=== PATIENT | female | born 1975 | race Caucasian/White ===

== ENCOUNTER 2022-04-28 19:16 | Inpatient (IN) | payer MEDICAID ==
[~2022-04-28] VITALS: Ht 157.5 cm; Wt 70.3 kg
[2022-04-28 19:27] VITALS: BP 135/75
--- NOTE | 2022-04-28 20:12 | NUR ---
Dr. Kaur examining patient.
[2022-04-28 20:59] LABS: BILIRUBIN,URINE 1+ (NEGATIVE); BLOOD, URINE NEGATIVE (NEGATIVE); LEUKOCYTE ESTERASE ,URINE TRACE (NEGATIVE); NITRITE, URINE NEGATIVE (NEGATIVE); UGLUCOSE NEGATIVE (NEGATIVE)
[2022-04-28 21:00] LABS: APPEARANCE,URINE CLOUDY (CLEAR); COLOR,URINE ORANGE (YELLOW)
[2022-04-28 21:18] LABS: RBC,URINE 0-5 /HPF (0-5)
--- NOTE | 2022-04-28 21:26 | NUR ---
TO BED 8 FROM
--- NOTE | 2022-04-28 21:37 | NUR ---
RECEIVED PT IN BED 8 WITH C/O ABDOMINAL PAIN X 3 YEARS. LAB IS AT BEDSIDE
[2022-04-28 21:47] LABS: BASOPHILS % (AUTO) 0.3 % (0.0-2.0); EOSINOPHILS # (AUTO) 0.1 K/uL (0-0.4); EOSINOPHILS % (AUTO) 0.7 % (0.0-4.0); HEMOGLOBIN 10.8 g/dL (12.0-16.0); LYMPHOCYTES # (AUTO) 0.8 K/uL (2.5-16.5); LYMPHOCYTES % (AUTO) 9.5 % (20.5-51.1); MEAN CORPUSCULAR HEMOGLOBIN 25 pg (27-31); MEAN CORPUSCULAR HGB CONC 32 g/dL (33-37); MEAN CORPUSCULAR VOLUME 79.6 fL (80-94); MONOCYTES # (AUTO) 0.6 K/uL (0.8-1.0); MONOCYTES % (AUTO) 7.8 % (1.7-9.3); NEUTROPHILS # (AUTO) 6.7 K/uL (1.8-7.7); NEUTROPHILS % (AUTO) 81.7 % (42.2-75.2); PLATELET COUNT (AUTO) 312 K/uL (140-450); RED BLOOD CELL COUNT(AUTO) 4.27 MIL/uL (4.20-5.40); RED CELL DISTRIBUTION WIDTH 15.7 % (11.6-13.7); WHITE BLOOD COUNT (AUTO) 8.2 K/uL (4.8-10.8)
[2022-04-28 22:03] LABS: ALBUMIN 4.1 g/dL (3.4-5.0); ANION GAP 11.3 (8-16); CARBON DIOXIDE 26.4 mmol/L (21-32); CREATININE 0.6 mg/dL (0.6-1.3); POTASSIUM 3.7 mmol/L (3.5-5.1); TOTAL BILIRUBIN 1.1 mg/dL (0.0-1.0)
[2022-04-28] MEDS ORDERED: KETOROLAC 15 MG/ML VIAL IVP ONE (22:10)
--- NOTE | 2022-04-28 22:10 | NUR ---
FERNY SWAB OBTAINED AND SENT TO LAB
--- NOTE | 2022-04-28 22:41 | NUR ---
BELONGINGS LIST DONE.
[2022-04-28] MEDS ORDERED: HYDROmorphone 1 MG/ML AMP IVP PRN (23:45)
[2022-04-28] MEDS ORDERED: DOCUSATE SODIUM 100 MG GELCAP PO PRN (23:45)
[2022-04-28] MEDS ORDERED: ONDANSETRON 4 MG/2 ML VIAL IM/IVP PRN (23:45)
[2022-04-28] MEDS ORDERED: ACETAMINOPHEN 325 MG TAB PO PRN (23:45)
[2022-04-28] MEDS ORDERED: guaiFENesin DM 200/20 MG-10 ML 10 ML UDC PO PRN (23:45)
[2022-04-28] MEDS ORDERED: HYDROcodone/APAP 7.5/325 MG 1 TAB PO PRN (23:45)
[2022-04-28] MEDS ORDERED: ZOLPIDEM 5 MG TAB PO PRN (23:45)
[2022-04-29 00:07] LABS: PROTHROMBIN TIME 10.1 secs (10.8-13.4)
[2022-04-29] MEDS ORDERED: cefTRIAXone 1,000 MG VIAL ONE (00:22)
[2022-04-29 00:23] LABS: CHOL/HDL RATIO 2.3 (1-4.5); FREE T4 (FREE THYROXINE) 1.21 ng/dL (0.76-1.46); MAGNESIUM 1.7 mg/dL (1.8-2.4); PHOSPHORUS 2.3 mg/dL (2.5-4.9); THYROID STIMULATING HORMONE 1.15 uIU/mL (0.34-3.74)
[2022-04-29] MEDS: DEXT 5% /NACL 0.9% 1,000 ML IV SCH ×4 (00:33→19:50)
--- NOTE | 2022-04-29 01:05 | NUR ---
REPORT TO NABILA PEREZ
--- NOTE | 2022-04-29 01:25 | NUR ---
TO 105A VIA W/C
[2022-04-29 01:53] VITALS: BP 132/72
[2022-04-29 02:26] VITALS: BP 132/72
--- NOTE | 2022-04-29 04:32 | NUR ---
PATIENT STABLE VITALS SIGNS IN NORMAL LIMITS NOT COMPLAINING OF PAIN AT THIS TIME
[2022-04-29 05:13] VITALS: BP 126/71
--- NOTE | 2022-04-29 07:15 | NUR ---
ASSUMED CONTINUITY OF CARE. INITIAL ASSESSMENT DONE. NO C/O ABD PAIN. EXPLAINED DIAGNOSIS, PLAN OF CARE, NPO EXCEPT MEDS, PAIN MANAGEMENT TEACHING, USE OF CALL LIGHT/BED/TV/BATHROOM. VERBALIZED UNDERSTANDING. CALL LIGHT WITHIN REACH.
--- NOTE | 2022-04-29 07:16 | NUR ---
I PAGE DOCTOR MANUEL FOR MAG LEVEL 1.7
[2022-04-29 07:18] LABS: BASOPHILS % (AUTO) 0.5 % (0.0-2.0); EOSINOPHILS # (AUTO) 0.2 K/uL (0-0.4); EOSINOPHILS % (AUTO) 4.2 % (0.0-4.0); HEMATOCRIT 29.5 % (36-48); HEMOGLOBIN 9.6 g/dL (12.0-16.0); LYMPHOCYTES # (AUTO) 0.9 K/uL (2.5-16.5); MEAN CORPUSCULAR HEMOGLOBIN 26 pg (27-31); MEAN CORPUSCULAR HGB CONC 33 g/dL (33-37); MEAN CORPUSCULAR VOLUME 79.2 fL (80-94); MONOCYTES # (AUTO) 0.5 K/uL (0.8-1.0); MONOCYTES % (AUTO) 10.9 % (1.7-9.3); NEUTROPHILS % (AUTO) 64.4 % (42.2-75.2); PLATELET COUNT (AUTO) 269 K/uL (140-450); RED BLOOD CELL COUNT(AUTO) 3.72 MIL/uL (4.20-5.40); RED CELL DISTRIBUTION WIDTH 15.9 % (11.6-13.7); WHITE BLOOD COUNT (AUTO) 4.7 K/uL (4.8-10.8)
--- NOTE | 2022-04-29 07:20 | NUR ---
I PAGE DOCTOR LAURA ABOUT MAG 1.7 WAITING FOR ORDER
--- NOTE | 2022-04-29 07:20 | NUR ---
WAITING FOR ORDER
--- NOTE | 2022-04-29 07:37 | NUR ---
ORDER FOR MAGNESIUM REPLACE WAS GIVE MAGOX 400 DAILY PO
[2022-04-29 07:51] LABS: ALBUMIN 3.4 g/dL (3.4-5.0); ANION GAP 13.7 (8-16); CARBON DIOXIDE 23.4 mmol/L (21-32); CREATININE 0.7 mg/dL (0.6-1.3); POTASSIUM 3.1 mmol/L (3.5-5.1); TOTAL BILIRUBIN 1.1 mg/dL (0.0-1.0)
[2022-04-29 08:00] VITALS: BP 108/58
[2022-04-29] MEDS: PANTOPRAZOLE 40 MG TABEC PO SCH (08:23)
[2022-04-29] MEDS: MAGNESIUM OXIDE 400 MG TAB PO SCH (08:24)
[2022-04-29] MEDS: POTASSIUM CHLORIDE 10 MEQ TABER PO PRN (08:32)
--- NOTE | 2022-04-29 09:45 | NUR ---
PATIENT HAS BEEN SCREENED AND CATEGORIZED MODERATE NUTRITION RISK. PATIENT WILL BE SEEN WITHIN 3-5 DAYS OF ADMISSION. REVIEWED BY MANGO BURTON RD
--- NOTE | 2022-04-29 10:20 | NUR ---
WENT TO BATHROOM WITHOUT ASSISTANCE. TOLERATED WELL. NO C/O PAIN.
--- NOTE | 2022-04-29 14:28 | NUR ---
GRACE TO NM VIA WHEELCHAIR. IN STABLE CONDITION.
--- NOTE | 2022-04-29 15:31 | NUR ---
PAGED DR. JACKSON AND ASKED FOR MORPHINE 2 MG IVP X1 DOSE ORDER FOR PT. HIDA SCAN. DR. JACKSON PAGED BACK AND SAID THAT PRN MORPHINE 3 MG IVP TO USE INSTEAD. CALL ALTON FROM PHARMACY AND INFORMED THAT MORPHINE 2 MG IVP WILL BE ONLY USE FOR PT. HIDA SCAN. AND PER ALTON, JUST WASTE REMAINING MORPHINE 2 MG. INFORMED CHARGE NURSE CORIN SHANNON.
--- NOTE | 2022-04-29 15:51 | NUR ---
MORPHINE 2 MG IVP GIVEN BY KASSIDY SHANNON FOR PT. HIDA SCAN PROTOCOL INSIDE NM DEPARTMENT.
[2022-04-29] MEDS: MORPHINE SULFATE 2 MG/ML SYR IVP PRN (16:04)
--- NOTE | 2022-04-29 16:27 | NUR ---
CAME BACK FROM [place] VIA WHEELCHAIR. NO C/O PAIN. NO C/O N/V.
--- NOTE | 2022-04-29 16:30 | NUR ---
MORPHINE 2 MG IV THAT WAS LEFT OVER FROM MORHINE 3 MG IVP Q4 PRN DOSE USED FOR PT. HIDA SCAN WASTED AND WITNESSED BY CHARGE NURSE CORIN SHANNON.
--- NOTE | 2022-04-29 16:40 | NUR ---
DEISY CALERO SPOKE TO PT. REGARDING NM AFTER PROCEDURE PRECAUTION.
[2022-04-29 16:45] VITALS: BP 136/67
--- NOTE | 2022-04-29 19:10 | NUR ---
BEDSIDE REPORT GIVEN TO FATIMAH YOUNG. IVF INFUSING WELL. IN STABLE CONDITION.
--- NOTE | 2022-04-29 19:30 | NUR ---
RECEIVED REPORT FROM DAY SHIFT NURSE FOR CONTINUITY OF CARE. PT IS AWAKE IN BED, A&OX4. CURRENTLY ON ROOM AIR WITH NO APPARENT SIGNS OF DISTRESS NOTED. IV SITE LOCATED AT LEFT AC 18 GAUGE, RUNNING D5NS AT 150ML/HR. IVF FLUID RUNNING WELL, NO INFILTRATION NOTED. PT CURRENTLY NPO, WILL CONTINUE TO MONITOR.
[2022-04-29 20:00] VITALS: BP 132/71
--- NOTE | 2022-04-29 22:00 | NUR ---
Patient's Plan of Care was discussed and reviewed with SARAH HOOVER
[2022-04-29 23:48] LABS: BARBITURATE, URINE NEGATIVE ng/ml (NEG <=200); BENZODIAZEPINE, URINE NEGATIVE ng/mL (NEG <=200); CANNABINOID, URINE NEGATIVE ng/mL (NEG <=50); COCAINE, URINE NEGATIVE ng/mL (NEG <=300); OPIATE, URINE POSITIVE ng/mL (NEG <=2000); PHENCYCLIDINE SCREEN,URINE NEGATIVE ng/mL (NEG <=25)
[2022-04-30] MEDS: DEXT 5% /NACL 0.9% 1,000 ML IV SCH ×4 (02:30→22:30)
[2022-04-30 04:00] VITALS: BP 101/47
--- NOTE | 2022-04-30 05:45 | NUR ---
PT SLEPT THROUGHOUT THE NIGHT WITH NO COMPLAINTS OF PAIN OR SIGNS OF DISTRESS. WILL ENDORSE TO DAY SHIFT NURSE FOR CONTINUITY OF CARE.
[2022-04-30 06:21] LABS: BASOPHILS % (AUTO) 0.5 % (0.0-2.0); EOSINOPHILS # (AUTO) 0.3 K/uL (0-0.4); EOSINOPHILS % (AUTO) 8.4 % (0.0-4.0); HEMATOCRIT 29.1 % (36-48); HEMOGLOBIN 9.4 g/dL (12.0-16.0); LYMPHOCYTES # (AUTO) 1.1 K/uL (2.5-16.5); LYMPHOCYTES % (AUTO) 35.8 % (20.5-51.1); MEAN CORPUSCULAR HEMOGLOBIN 26 pg (27-31); MEAN CORPUSCULAR HGB CONC 32 g/dL (33-37); MEAN CORPUSCULAR VOLUME 79.9 fL (80-94); MONOCYTES # (AUTO) 0.3 K/uL (0.8-1.0); MONOCYTES % (AUTO) 9.3 % (1.7-9.3); NEUTROPHILS # (AUTO) 1.5 K/uL (1.8-7.7); PLATELET COUNT (AUTO) 254 K/uL (140-450); RED BLOOD CELL COUNT(AUTO) 3.64 MIL/uL (4.20-5.40); RED CELL DISTRIBUTION WIDTH 15.4 % (11.6-13.7); WHITE BLOOD COUNT (AUTO) 3.2 K/uL (4.8-10.8)
[2022-04-30 07:03] LABS: ALBUMIN 3.1 g/dL (3.4-5.0); ANION GAP 9.3 (8-16); CREATININE 0.6 mg/dL (0.6-1.3); POTASSIUM 3.3 mmol/L (3.5-5.1); TOTAL BILIRUBIN 0.7 mg/dL (0.0-1.0)
[2022-04-30 08:00] VITALS: BP 113/61
[2022-04-30] MEDS: POTASSIUM CHLORIDE 10 MEQ TABER PO PRN (09:22)
[2022-04-30] MEDS: PANTOPRAZOLE 40 MG TABEC PO SCH (09:23)
[2022-04-30] MEDS: MAGNESIUM OXIDE 400 MG TAB PO SCH (09:24)
--- NOTE | 2022-04-30 10:25 | NUR ---
BACK FROM ICU. REPORT RECEIVED FROM [facility]. PT A/O X4. MS. RA. IN NO ACUTE DISTRESS. NPO AFTER MIDNIGHT. NEEDS ALL MET AT THIS TIME. ALL SAFETY MEASURES IN PLACE.
--- NOTE | 2022-04-30 12:30 | NUR ---
PT IN NO ACUTE DISTRESS. RESTING COMFORTABLY. ALL NEEDS MET AT THIS TIME. ALL SAFETY MEASURES IN PLACE.
--- NOTE | 2022-04-30 15:20 | NUR ---
REPORT GIVEN TO [facility] FOR CONTINUITY OF CARE.
--- NOTE | 2022-04-30 15:25 | NUR ---
RECEIVED REPORT FROM DAYSHIFT NURSE. PATIENT IS RESTING COMFORTABLY IN BED WITH NO SIGNS OF DISTRESS. WAITING TO BE SEEN BY ALL NEEDS ARE MET AT THIS TIME. BED IS PLACED IN LOWEST POSITION, CALL LIGHT IS WITHIN REACH.
[2022-04-30 16:00] VITALS: BP 128/78
--- NOTE | 2022-04-30 16:10 | NUR ---
AT BEDSIDE. PT WAS SEEN BY DR DOOLEY. MACKENZIE ([facility], ID#[id number]) WAS USED TO TRANSLATE TO PATIENT.
[2022-04-30] MEDS: MORPHINE SULFATE 2 MG/ML SYR IVP PRN (18:29)
--- NOTE | 2022-04-30 19:15 | NUR ---
RECEIVED REPORT FROM DAY SHIFT NURSE FOR CONTINUITY OF CARE. PT IS STABLE AT THIS TIME. D5NS RUNNING WITH NO ISSUES. LAC 18 GAUGE IV SITE INTACT AND PATENT. PT STILL NPO EXCEPT MEDS AT THIS TIME. CALL LIGHT WITHIN REACH, SAFETY PRECAUTIONS IN PLACE, WILL MAKE FREQUENT ROUNDS THROUGHOUT SHIFT.
[2022-05-01] VITALS: BP 126/75
[2022-05-01] MEDS: DEXT 5% /NACL 0.9% 1,000 ML IV SCH ×2 (05:10→11:50)
[2022-05-01 06:48] LABS: BASOPHILS % (AUTO) 0.6 % (0.0-2.0); EOSINOPHILS # (AUTO) 0.3 K/uL (0-0.4); EOSINOPHILS % (AUTO) 7.5 % (0.0-4.0); HEMATOCRIT 30.5 % (36-48); HEMOGLOBIN 9.7 g/dL (12.0-16.0); LYMPHOCYTES # (AUTO) 1.4 K/uL (2.5-16.5); LYMPHOCYTES % (AUTO) 38.5 % (20.5-51.1); MEAN CORPUSCULAR HEMOGLOBIN 26 pg (27-31); MEAN CORPUSCULAR HGB CONC 32 g/dL (33-37); MEAN CORPUSCULAR VOLUME 79.9 fL (80-94); MONOCYTES # (AUTO) 0.3 K/uL (0.8-1.0); MONOCYTES % (AUTO) 9.2 % (1.7-9.3); NEUTROPHILS # (AUTO) 1.6 K/uL (1.8-7.7); NEUTROPHILS % (AUTO) 44.2 % (42.2-75.2); PLATELET COUNT (AUTO) 264 K/uL (140-450); RED BLOOD CELL COUNT(AUTO) 3.82 MIL/uL (4.20-5.40); RED CELL DISTRIBUTION WIDTH 15.9 % (11.6-13.7); WHITE BLOOD COUNT (AUTO) 3.6 K/uL (4.8-10.8)
[2022-05-01 06:50] LABS: ALBUMIN 3.2 g/dL (3.4-5.0); CARBON DIOXIDE 24.2 mmol/L (21-32); CREATININE 0.6 mg/dL (0.6-1.3); POTASSIUM 3.2 mmol/L (3.5-5.1); TOTAL BILIRUBIN 0.4 mg/dL (0.0-1.0)
--- NOTE | 2022-05-01 07:20 | NUR ---
RECEIVED REPORT FROM NIGHT NURSE FATIMAH FOR CONTINUITY OF CARE. INITIAL ASSESSMENT DONE. IVF INFUSING WELL. PT ON NPO EXCEPT MEDS. NO C/O PAIN OR DISCOMFORT. CALL LIGHT KEPT WITHIN REACH. WILL CONTINUE TO MONITOR.
--- NOTE | 2022-05-01 07:45 | NUR ---
PT SLEPT THROUGHOUT THE NIGHT WITH NO SIGNS OF DISTRESS NOTED. ENDORSED TO DAY SHIFT NURSE IN STABLE CONDITION.
[2022-05-01 08:00] VITALS: BP 131/77
[2022-05-01] MEDS: PANTOPRAZOLE 40 MG TABEC PO SCH (08:29)
[2022-05-01] MEDS: MAGNESIUM OXIDE 400 MG TAB PO SCH (08:29)
--- NOTE | 2022-05-01 08:29 | NUR ---
SCHEDULED MEDICATIONS AND PRN K-DUR WAS GIVEN FOR POTASSIUM 3.2 TOLERATING WELL.
[2022-05-01] MEDS: POTASSIUM CHLORIDE 10 MEQ TABER PO PRN (08:30)
--- NOTE | 2022-05-01 10:52 | NUR ---
NOTIFIED BY PROGRAM/MUSIC DIRECTOR ELISHA, PER DR. CASIANO PT DOESN'T NEED FOR ERCP. DR. LACKEY NOTIFIED IF PT NEED FOR LAP NENO. AWAITING FOR RESPONSE.
--- NOTE | 2022-05-01 11:12 | NUR ---
RECEIVED CALLED FROM DR. LACKEY STATED PT WILL FOLLOW ON HIS CLINIC. PT MADE AWARE. Addendum: 05/01/22 at 1229 by TEJ ZHOU LVN ADDENDUM: PT IS CLEARED FOR DISCHARGE.
--- NOTE | 2022-05-01 11:20 | NUR ---
DR. JACKSON NOTIFIED, THAT PT IS CLEARED FOR DISCHARGED BY DR. LACKEY. PER DR. JACKSON, WILL ANTICIPATED DISCHARGE FOR TOMORROW. WITH NEW ORDER: CLEAR LIQUID DIET. NOTED AND CARRIED OUT. PT MADE AWARE.
--- NOTE | 2022-05-01 12:52 | NUR ---
PT SEEN BY DR. MARTI AND STATED PT IS CLEARED FOR DISCHARGE. PT TOLERATED CLEAR LIQUID DIET. NO C/O PAIN OR DISCOMFORT. PT WANTS TO GO HOME. DR. JACKSON NOTIFIED AWAITING FOR RESPONSE.
[2022-05-01] MEDS ORDERED: ACTI300 PO (13:34)
--- NOTE | 2022-05-01 13:34 | NUR ---
RECEIVED DISCHARGE ORDER FROM DR. JACKSON.
--- NOTE | 2022-05-01 15:15 | NUR ---
PT LEFT, DISCHARGE TO HOME. TRANSPORTED BY PRIVATE CAR. AMBULATORY. ALERT AND ORIENTED X 4. IV AND ID BAND REMOVE. DISCHARGE PAPERWORKS DISCUSS AND SIGN BY PATIENT. REMAINS STABLE.
== END 2022-05-01 15:42 | disposition home or self-care (01) ==
LOC: MED 19:16 → MMU 22:37 → MTU 04-29 00:51
PROVIDERS: ADMIT Family Medicine; ATTEND Family Medicine
DX: K80.20 Calculus of gallbladder without cholecystitis without obstruction (principal); K85.10 Biliary acute pancreatitis without necrosis or infection; E83.51 Hypocalcemia; E83.39 Other disorders of phosphorus metabolism; D50.9 Iron deficiency anemia, unspecified; E87.6 Hypokalemia; N39.0 Urinary tract infection, site not specified; R00.1 Bradycardia, unspecified; R74.01 Elevation of levels of liver transaminase levels; Z20.822 Contact with and (suspected) exposure to COVID-19
CPT/HCPCS: 36415; 71045; 76705; 78445; 80053; 80305; 81001; 82150; 83036; 83690; 83735; 83880; 84100; 84436; 84439; 84443; 84479; 85025; 85610; 85730; 87081; 87086; 96374; 96375; 99285; J0696; J1885; J2270; J2405; J7060; Q0092